=== PATIENT | male | born 2005 | race Caucasian/White ===

== ENCOUNTER → 2023-12-18 | Emergency (ER) | payer SELFPAY ==
[~2023-12-18] MED LIST: CEPHALEXIN 250 MG CAP ONE; DIAZEPAM 5 MG TABLET ONE; IBUPROFEN 400 MG TAB ONE; LIDOCAINE 1% 20 ML MDV ONE; PROMETHAZINE 25 MG TABLET ONE
--- NOTE | 2023-12-18 07:54 | EDPHYS ---
Physician Documentation [facility] Name: Nikhil Weinberg Age: 18 yrs Sex: Male : 2005 Arrival Date: 12/18/2023 Time: 05:08 Bed 4 Private MD: ED Physician Jeremie Tucker HPI: 12/18 05:20 This 18 yrs old Male presents to ER via Ambulatory with complaints of left sp4 hand distal middle finger injury . 20:13 18-year-old male presents after he was injured via industrial sized winch. sp4 20:15 Patient states he caught his left middle finger in the windshield causing injury to the sp4 left distal phalanx and avulsion of the left finger nail with nail still partially attached to the nailbed. Patient tells me about moderate to severe pain left middle finger distal phalanx swelling discoloration and bleeding. . Historical: - Allergies: 05:18 No Known Allergies; km8 - Home Meds: 05:18 None [Active]; km8 - PMHx: 05:18 None; km8 - PSHx: 05:18 RIGHT JAW SURGERY; km8 - Immunization history:: Last tetanus immunization: up to date < 5 years ago. - Social history:: Smoking status: Patient denies any tobacco usage or history of. Patient uses alcohol, on a daily basis. Patient/guardian denies using street drugs. ROS: 20:15 Constitutional: Negative for fever, chills, and weight loss, sp4 20:15 All other systems are negative, 20:18 MS/extremity: Positive for Left middle finger distal phalanx crush injury with partial sp4 fingernail avulsion, Exam: 20:15 Constitutional: This is a well developed, well nourished patient who is awake, alert, sp4 and in no acute distress. Head/Face: Normocephalic, atraumatic. Eyes: Pupils equal round and reactive to light, extra-ocular motions intact. Lids and lashes normal. Conjunctiva and sclera are not injected. Cornea within normal limits. Periorbital areas with no swelling, redness, or edema. ENT: Nares patent. No nasal discharge, no septal abnormalities noted. Tympanic membranes are normal and external auditory canals are clear. Oropharynx with no redness, swelling, or masses, exudates, or evidence of obstruction, uvula midline. Mucous membranes moist. Neck: Trachea midline, no thyromegaly or masses palpated, and no cervical lymphadenopathy. Supple, full range of motion without nuchal rigidity, or vertebral point tenderness. Chest/axilla: Normal chest wall appearance and motion. Nontender with no deformity. No lesions are appreciated. Cardiovascular: Regular rate and rhythm with a normal S1 and S2. No gallops, murmurs, or rubs. Normal PMI, no JVD. No pulse deficits. Respiratory: Lungs have equal breath sounds bilaterally, clear to auscultation and percussion. No rales, rhonchi or wheezes noted. No increased work of breathing, no retractions or nasal flaring. Abdomen/GI: Soft, with normal bowel sounds. No distension or tympany. No guarding or rebound. No evidence of tenderness throughout. Back: No spinal tenderness. No costovertebral tenderness. Skin: Warm, dry with normal turgor. Normal color with no rashes, no lesions, and no evidence of cellulitis. MS/ Extremity: Pulses equal, no cyanosis. Neurovascular intact. Full, normal range of motion. There is pain tenderness left distal middle finger with left distal phalanx discoloration swelling and also partial fingernail avulsion. Bleeding controlled Neuro: Awake and alert, GCS 15, oriented to person, place, time, and situation. Cranial nerves II-XII grossly intact. Motor strength 5/5 in all extremities. Sensory grossly intact. Vital Signs: 05:16 BP 137 / 108; Pulse 87; Resp 18; Temp 98(TE); Pulse Ox 100% on R/A; Weight 79.38 kg km8 (R); Height 5 ft. 11 in. (R); Pain 9/10; 06:00 BP 153 / 88; Pulse 86; Resp 18; Pulse Ox 100% on R/A; km8 08:10 BP 142 / 79; Pulse 81; Resp 18; Pulse Ox 100% on R/A; ld1 05:16 Body Mass Index 24.41 (79.38 kg, 180.34 cm) [facility] 05:16 Pain Scale: Adult [facility] Ruby Coma Score: 05:23 Eye Response: spontaneous(4). Motor Response: obeys commands(6). Verbal Response: km oriented(5). Total: 15. Procedures: 20:03 Splinting: Splint applied to dorsal aspect of middle phalanx of left index finger, sp4 dorsal aspect of proximal phalanx of left index finger, dorsal aspect of middle phalanx of left middle finger, dorsal aspect of proximal phalanx of left middle finger, left index fingernail and left middle fingernail using Orthoglass splint, Left middle finger was given sterile dressing and then yair taped to the left index finger. Those were splinted together with Ortho-Glass splint and cast padding. Patient advised to leave dressing and splint intact until he can see an orthopedist. Splint care instructions were provided to the patient. applied by myself. Examined by me, post splint application: neurovascular intact, Patient tolerated well, Discharge home with splint care instructions. Laceration: 20:03 Wound Repair of 2cm ( 0.8in ) subcutaneous laceration to left middle fingernail -left sp4 middle finger fingernail avulsion with open fracture of the distal phalanx. Fingernail was sutured to the nailbed after extensive cleansing and irrigation. Fingernail avulsion. Distal neuro/vascular/tendon intact. Anesthesia: Digital block administered with 6 mls of 1% lidocaine. Wound prep: Moderate cleansing by me, Copious irrigation. Skin closed with 4 4-0 Prolene using interrupted sutures and sterile technique. Dressed with 4x4's, Kerlix, non-adherent dressing. Patient tolerated well. MDM: 05:22 Patient medically screened. sp4 07:52 ED course: EXAM: XR Left Hand Complete, 3 or More Views CLINICAL HISTORY: The patient sp4 is 18 years old and is Male; left middle finger injury TECHNIQUE: Three views of the left hand. COMPARISON: No relevant prior studies available. FINDINGS: Bones/joints: Nondisplaced fracture in the third distal phalanx. No dislocation. Soft tissues: Dorsal laceration in the soft tissues of the distal third digit. No definite radiopaque foreign object. IMPRESSION: 1. Nondisplaced fracture in the third distal phalanx. 2. Dorsal laceration in the soft tissues of the distal third digit. No definite radiopaque foreign object. Electronically signed by: Priyanka Velazquez MD 12/18/2023 06:20 AM. 20:03 Differential diagnosis: superficial laceration, tendon injury, vascular injury, sp4 Crushing injury left distal finger. Data reviewed: vital signs, nurses notes, radiologic studies, plain films. Consideration of Admission/Observation Escalation of care including admission/observation considered. ED course: Splint was provided, wound care was provided, nail was sutured to the nailbed for protection. Patient advised to see orthopedist in 2 weeks for repeat x-ray and splint change and dressing change. Patient discharged in good condition. Patient was provided extended course of cephalexin and Bactrim to prevent open fracture infection. 12/18 05:22 Order name: Hand Left 3 View XRAY sp4 12/18 05:21 Order name: Gloves, Sterile; Complete Time: 05:47 sp4 12/18 05:21 Order name: Setup Suture Tray; Complete Time: 05:47 sp4 12/18 07:57 Order name: Splint - Finger: applied by sp4 12/18 07:57 Order name: Sling sp4 Administered Medications: 05:43 Drug: Ibuprofen PO 800 mg PO once Route: PO; km 05:43 Drug: Promethazine PO 25 mg PO once Route: PO; km8 05:43 Drug: Cephalexin PO 500 mg PO once Route: PO; km8 06:09 Drug: Diazepam PO 5 mg PO once Route: PO; km8 Disposition Summary: 12/18/23 07:53 Discharge Ordered Problem: new sp4 Symptoms: have improved sp4 Condition: Stable sp4 Diagnosis - Left middle finger distal phalanx open fracture with fingernail avulsion , left sp4 middle finger distal phalanx crush injury Followup: sp4 - With: Private Physician - When: 10 - 14 days - Reason: Recheck today's complaints Discharge Instructions: - Discharge Summary Sheet sp4 - Finger Fracture, Adult, [id number] sp4 Forms: - Patient Portal Instructions sp4 Prescriptions: - Cephalexin 250 mg Oral Capsule - take 1 capsule ORAL route every 8 hours for 10 days; 30 capsule; Refills: 0, sp4 Product Selection Permitted - Ibuprofen 800 mg Oral Tablet - take 1 tablet ORAL route every 8 hours As needed take with food; 30 tablet; sp4 Refills: 0, Product Selection Permitted - Tramadol 50 mg Oral Tablet - take 1 tablet ORAL route every 8 hours as needed; 12 tablet; Refills: 0, sp4 Product Selection Permitted - Bactrim DS 800-160 mg Oral Tablet - take 1 tablet ORAL route every 12 hours for 10 days; 20 tablet; Refills: 0, sp4 Product Selection Permitted Signatures: Dispatcher [employer] Jeremie Otero MD MD sp4 Milly Forte RN RN km8
--- NOTE | 2023-12-18 07:54 | ER ---
Nurse's Notes [facility] Name: Nikhil Weinberg Age: 18 yrs Sex: Male : 2005 Arrival Date: 12/18/2023 Time: 05:08 Bed 4 Private MD: Diagnosis: Left middle finger distal phalanx open fracture with fingernail avulsion , left middle finger distal phalanx crush injury Presentation: 12/18 05:16 Chief complaint: Patient states: REPORTS CRUSHING LEFT MIDDLE FINGER BETWEEN METAL AND km8 A WENCH; BLEEDING CONTROLLED AT THIS TIME. Coronavirus screen: Client denies travel out of the [place] in the last 14 days. Ebola Screen: No symptoms or risks identified at this time. Initial Sepsis Screen: Does the patient meet any 2 criteria? No. Patient's initial sepsis screen is negative. Does the patient have a suspected source of infection? No. Patient's initial sepsis screen is negative. Risk Assessment: Do you want to hurt yourself or someone else? Patient reports no desire to harm self or others. Onset of symptoms was December 18, 2023. 05:16 Method Of Arrival: Ambulatory [facility] 05:16 Acuity: KETAN 2 km8 Triage Assessment: 05:18 General: Appears uncomfortable, Behavior is cooperative, appropriate for age. Pain: km8 Complains of pain in left middle finger Pain currently is 9 out of 10 on a pain scale. EENT: No signs and/or symptoms were reported regarding the EENT system. Neuro: Level of Consciousness is awake, alert, obeys commands, Oriented to person, place, time, situation. Cardiovascular: Denies chest pain, shortness of breath, Patient's skin is warm and dry. Respiratory: Airway is patent Respiratory effort is even, unlabored, Respiratory pattern is regular, symmetrical. GI: No signs and/or symptoms were reported involving the gastrointestinal system. : No signs and/or symptoms were reported regarding the genitourinary system. Derm: Skin is intact, is healthy with good turgor, Skin is dry, Skin is pink, warm \T\ dry. normal, Skin temperature is warm Wound noted left middle finger Wound is CRUSH INJURY. Historical: - Allergies: 05:18 No Known Allergies; km8 - Home Meds: 05:18 None [Active]; km8 - PMHx: 05:18 None; 8 - PSHx: 05:18 RIGHT JAW SURGERY; km8 - Immunization history:: Last tetanus immunization: up to date < 5 years ago. - Social history:: Smoking status: Patient denies any tobacco usage or history of. Patient uses alcohol, on a daily basis. Patient/guardian denies using street drugs. Screenin:23 [facility] ED Fall Risk Assessment (Adult) History of falling in the last 3 months, 8 including since admission No falls in past 3 months (0 pts) Confusion or Disorientation No (0 pts) Intoxicated or Sedated No (0 pts) Impaired Gait No (0 pts) Mobility Assist Device Used No (0 pt) Altered Elimination No (0 pt) Score/Fall Risk Level 0 - 2 = Low Risk Oriented to surroundings, Maintained a safe environment, Educated pt \T\ family on fall prevention, incl call for assistance when getting out of bed, Assessed \T\ reinforced patient's understanding of fall precautions. Abuse screen: Denies threats or abuse. Denies injuries from another. Nutritional screening: No deficits noted. 05:23 Tuberculosis screening: No symptoms or risk factors identified. [facility] Assessment: 05:23 General: SEE TRIAGE ASSESSMENT/NOTES. [facility] 06:37 Reassessment: Patient appears in no apparent distress at this time. No changes from 8 previously documented assessment. Patient and/or family updated on plan of care and expected duration. Pain level reassessed. Patient is alert, oriented x 3, equal unlabored respirations, skin warm/dry/pink. 07:20 Reassessment: ERP at bedside providing care to left hand. ld1 08:10 Reassessment: Patient appears in no apparent distress at this time. No changes from ld1 previously documented assessment. Patient and/or family updated on plan of care and expected duration. Pain level reassessed. Patient states feeling better. Patient states symptoms have improved. Vital Signs: 05:16 BP 137 / 108; Pulse 87; Resp 18; Temp 98(TE); Pulse Ox 100% on R/A; Weight 79.38 kg 8 (R); Height 5 ft. 11 in. (R); Pain 9/10; 06:00 BP 153 / 88; Pulse 86; Resp 18; Pulse Ox 100% on R/A; [facility] 08:10 BP 142 / 79; Pulse 81; Resp 18; Pulse Ox 100% on R/A; ld1 05:16 Body Mass Index 24.41 (79.38 kg, 180.34 cm) km8 05:16 Pain Scale: Adult km8 Giancarlo Coma Score: 05:23 Eye Response: spontaneous(4). Motor Response: obeys commands(6). Verbal Response: km8 oriented(5). Total: 15. ED Course: 05:16 Patient arrived in ED. km8 05:18 Triage completed. km8 05:18 Arm band placed on right wrist. km8 05:20 Jeremie Tucker MD is Attending Physician. sp4 05:23 Patient has correct armband on for positive identification. Bed in low position. Call km8 light in reach. Side rails up X 1. Pulse ox on. NIBP on. 05:23 Patient maintains SpO2 saturation greater than 95% on room air. km8 05:42 Milly Forte, RN is Primary Nurse. km8 05:45 Hand Left 3 View XRAY In Process Unspecified. EDMS 08:11 No provider procedures requiring assistance completed. Patient did not have IV access ld1 during this emergency room visit. Administered Medications: 05:43 Drug: Ibuprofen PO 800 mg PO once Route: PO; km8 05:43 Drug: Promethazine PO 25 mg PO once Route: PO; km8 05:43 Drug: Cephalexin PO 500 mg PO once Route: PO; km8 06:09 Drug: Diazepam PO 5 mg PO once Route: PO; km8 Medication: 05:23 VIS not applicable for this client. km8 Outcome: 07:53 Discharge ordered by . sp4 08:11 Discharged to home ambulatory, ld1 08:11 Condition: stable 08:11 Discharge instructions given to patient, Instructed on discharge instructions, follow up and referral plans. Demonstrated understanding of instructions, follow-up care, medications, Prescriptions given X 4, 08:11 Patient left the ED. ld1 Signatures: Dispatcher [employer] EDMS Evie Rich RN RN ld1 Jeremie Tucker MD MD sp4 Milly Forte, SRINIVASA RN km8 Corrections: (The following items were deleted from the chart) 06:42 05:16 Acuity: KETAN 3 km8 km8
[2023-12-18 08:29] VITALS: BP 142/79; TEMP 98; O2SAT 100
--- NOTE | 2023-12-18 15:28 | RAD REPORT ---
EXAM DESCRIPTION: XR Left Hand Complete, 3 or More Views CLINICAL HISTORY: The patient is 18 years old and is Male; left middle finger injury TECHNIQUE: Three views of the left hand. COMPARISON: No relevant prior studies available. FINDINGS: Bones/joints: Nondisplaced fracture in the third distal phalanx. No dislocation. Soft tissues: Dorsal laceration in the soft tissues of the distal third digit. No definite radiop aque foreign object. IMPRESSION: 1. Nondisplaced fracture in the third distal phalanx. 2. Dorsal laceration in the soft tissues of the distal third digit. No definite radiopaque foreign object. Electronically signed by: Priyanka Velazquez MD 12/18/2023 06:[address] Due to temporary technical issues with the PACS/Fluency reporting system, reports are being signed by the in house radiologists without review as a courtesy to insure prompt reporting. The interpreting radiologist is fully responsible for the content of the report.
== END ==
LOC: ER 05:08
PROC: 2W3KX1Z Immobilization of Left Finger using Splint (ICD-10-PCS; principal; 2023-12-18)
DX: S62.633B Displaced fracture of distal phalanx of left middle finger, initial encounter for open fracture (principal)
CPT/HCPCS: J2001; Q0169